=== PATIENT | male | born 1945 | race Hispanic/Latino ===

== ENCOUNTER → 2019-10-16 | Day surgery (SDC) | payer MEDICARE, OTHER ==
[2019-10-11 12:48] LABS: BASOPHILS % 0.3 % (0.0-1.0); EOSINOPHILS # (AUTO) 0.1 (0.0-0.4); EOSINOPHILS % 1.2 % (0.0-6.0); HEMATOCRIT 38.2 % (38.2-49.6); HEMOGLOBIN 12.7 g/dL (14.0-18.0); LYMPHOCYTES # (AUTO) 4.1 (1.0-3.2); LYMPHOCYTES % 40.6 % (18.0-39.1); MEAN CORPUSCULAR HEMOGLOBIN 29.5 pg (28-32); MEAN CORPUSCULAR HGB CONC 33.2 g/dL (31-35); MEAN CORPUSCULAR VOLUME 88.6 fL (81-99); MONOCYTES # (AUTO) 0.9 (0.2-0.8); NEUTROPHILS # (AUTO) 4.8 (2.1-6.9); NEUTROPHILS % 48.4 % (38.7-80.0); PLATELET COUNT 235 x10e3/uL (140-360); RED BLOOD COUNT 4.31 x10e6/uL (4.3-5.7); RED CELL DISTRIBUTION WIDTH 14.5 % (11.7-14.4)
[2019-10-11 13:10] LABS: ALANINE AMINOTRANSFERASE 26 IU/L (0-55); ALBUMIN 3.9 g/dL (3.5-5.0); ALBUMIN/GLOBULIN RATIO 1.1 (0.8-2.0); ALKALINE PHOSPHATASE 86 IU/L (40-150); ANION GAP 15.2 mmol/L (8-16); BLOOD UREA NITROGEN 12 mg/dL (7-26); BUN/CREATININE RATIO 13 (6-25); CARBON DIOXIDE 19 mmol/L (22-29); CHLORIDE 102 mmol/L (98-107); CREATININE, SERUM 0.93 mg/dL (0.72-1.25); EST GLOMERULAR FILTRATION RATE > 60 ML/MIN (60-); GLUCOSE 134 mg/dL (74-118); POTASSIUM 4.2 mmol/L (3.5-5.1); SODIUM 132 mmol/L (136-145)
[2019-10-16] VITALS (11 sets, daily range): BP systolic 100–177; BP diastolic 66–88
[~2019-10-16] MED LIST: ALPRAZOLAM 0.5 MG TAB ONE; ARICEPT5 MG PO; ASPIRIN 325 MG TAB ONE; ATORVASTATIN CA20 MG PO; BIVALRIUDIN 250 MG/VIAL VIAL IV ONE; COREG3.125 MG PO; DIPHENHYDRAMINE HCL 25 MG CAP ONE; ELIQUIS5 MG PO; FENTANYL CITRATE/PF 100MCG/2 ML INJ ONE; FUROSEMIDE40 MG PO; HEPARIN SOD/SOD CHLORIDE 2,000 ML ONE; INDOMETHACIN50 MG PO; IOPAMIDOL 370 MG/ML 200 ML INFUS..BTL INJ ONE; LIDOCAINE HCL 2% LOCAL 20 ML VIAL ONE; LORATADINE10 MG PO; LOSARTAN POTASS25 MG PO; LYRICA50 MG PO; METFORMIN HCL500 MG PO; MIDAZOLAM HCL 2 MG/2 ML VIAL ONE; POTASSIUM CHLO10 ME1 PO; PRASUGREL 10 MG TAB ONE; SODIUM CHLORIDE 0.9% 1000ML 1,000 ML ONE; SODIUM CHLORIDE 0.9% 50ML 50 ML ONE; VERAPAMIL HCL 2.5 MG/ML 2 ML VIAL ONE
--- NOTE | 2019-10-16 14:56 | NUR ---
1456 Received pt to room #9,bedside report received from JOE Ricks. Alert oriented and appropriate, PERRLA, respirations even and unlabored to room air. Pulses x4 extremities equal and strong. Pedal pulses PT/DP X4 Doppler. Cap fill brisk < 3 sec. Rt Tr band approach No gross issues pain pallor pressure dysrhythmia.Decrease air at 7pm Skin warm and dry integrity appears D/I. IV 20g to left wrist Angiomax infusing to complete at 330pm presents healthy w/o s/s of infiltration or complaint. Abdomen soft and supple. pt offered toileting, denies need to urinate or defecate. No personal affects with patient. No Family at bedside Ms Scherer to come at 8pm for dc planning pt home at 9pm.. Pt and family verbalizes understanding of POC. Currently w/o complaint of pain or need. -mariza/joe
--- NOTE | 2019-10-16 15:30 | NUR ---
1530p Angiomax completed. No gross issues pain,pallor ,pressure or dysrhythmia.May dc home at 9pm. Called family and mad arrangements for pickup Ms Scherer will arrive for pickup at 9pm to hear dc instructions. Understand daughter does speak Pashto. mariza/rn
--- NOTE | 2019-10-16 18:00 | NUR ---
1800p RADIAL Compression removal: Initial Cuff volume 12 cc 1800p -2cc Removed No hematoma/bleeding noted with normal neurovascular function. 1815cc -5cc Removed No hematoma/ bleeding noted with normal neurovascular function. 1830cc -5ccRemoved No hematoma/bleeding noted with normal neurovascular function. Air removal completed. Stasis achieved sterile 2x2,Tegaderm, Coban dressing No hematoma, bleeding noted with normal neurovascular function. Wrist splint in place. Pt instructed on POC. Ds/Rn
--- NOTE | 2019-10-16 19:00 | NUR ---
1900p Handoff to Vaishnavi De León Tr band off. No gross issues pain,pallor,pressure or dysrhythmia. Vs stable Family to arrive at 8pm for dc teaching.Downtime 9pm Lad fix x1 stent. Denies CP or SOB Left iv infusing w/o s/s infiltration at 100cchr till dc.
--- NOTE | 2019-10-16 21:06 | Operative Report ---
DATE OF PROCEDURE: SURGEON: Josue Bronson MD INDICATIONS: Coronary artery disease, abnormal stress test with angina. PROCEDURES PERFORMED: 1. Ultrasound-guided access in the right radial artery with sheath placement. 2. Conscious sedation, 65 minutes. 3. Left heart catheterization, selective coronary angiography. 4. Left anterior descending artery, midportion, stent placement. 5. Deployment of right wrist TR band. COMPLICATIONS: None. BLOOD LOSS: Minimal. RECOMMENDATIONS: 1. Aspirin, clopidogrel, and Eliquis for 3 months followed by aspirin and Eliquis thereafter. 2. Staged intervention on the obtuse marginal circumflex arteries in bifurcating fashion. DESCRIPTION OF PROCEDURE: Access was obtained in the right radial artery using ultrasound guidance, a 5-Montenegrin sheath was placed. Coronary angiography demonstrated patent left main, left anterior descending artery, mid 80% stenosis, obtuse marginal branch, ostial 90% stenosis, right coronary artery, mild 20% stenosis. LV end-diastolic pressure was normal. A decision was made to intervene on the left anterior descending artery. The patient received intravenous Angiomax, oral aspirin, and prasugrel for anticoagulation. The left main was cannulated using an EBU 375, 6-Montenegrin guiding catheter. Short BMW wire was advanced for cross prime for advanced for support. Primary stent 2.5 x 16 mm Synergy stent was deployed at 14 atmospheres. Excellent end result, less than 10% residual stenosis, LESVIA-3 flow. No complications. Wire and guide sheath removed. TR band applied. The patient discharged home same day. Josue Bronson MD KSB/MODL /[id number]
== END | disposition home or self-care (01) ==
LOC: CATH LAB 11:10
PROVIDERS: ATTEND Internal Medicine Interventional Cardiology
DX: I25.118 Atherosclerotic heart disease of native coronary artery with other forms of angina pectoris (principal); R94.39 Abnormal result of other cardiovascular function study; I48.3 Typical atrial flutter; I11.0 Hypertensive heart disease with heart failure; I50.23 Acute on chronic systolic (congestive) heart failure; I44.7 Left bundle-branch block, unspecified; E11.9 Type 2 diabetes mellitus without complications; E78.00 Pure hypercholesterolemia, unspecified; Z01.812 Encounter for preprocedural laboratory examination; Z11.59 Encounter for screening for other viral diseases; Z79.84 Long term (current) use of oral hypoglycemic drugs; Z79.02 Long term (current) use of antithrombotics/antiplatelets; Z68.34 Body mass index [BMI] 34.0-34.9, adult
CPT/HCPCS: 93454; C9600; 36415; 76937; 80053; 85025; 87635; 92928; 99152; 99153; C1769; C1887; C1894; J0583; J2001; J2250; J3010; J7030; Q9967

== ENCOUNTER → 2019-11-13 | Day surgery (SDC) | payer MEDICARE, OTHER ==
[2019-11-08 10:05] LABS: BASOPHILS % 0.4 % (0.0-1.0); EOSINOPHILS # (AUTO) 0.1 (0.0-0.4); EOSINOPHILS % 1.2 % (0.0-6.0); HEMATOCRIT 40.5 % (38.2-49.6); HEMOGLOBIN 13.3 g/dL (14.0-18.0); LYMPHOCYTES % 41.5 % (18.0-39.1); MEAN CORPUSCULAR HGB CONC 32.8 g/dL (31-35); MEAN CORPUSCULAR VOLUME 88.4 fL (81-99); MONOCYTES # (AUTO) 0.8 (0.2-0.8); MONOCYTES % 8.3 % (4.4-11.3); NEUTROPHILS # (AUTO) 4.6 (2.1-6.9); NEUTROPHILS % 47.9 % (38.7-80.0); PLATELET COUNT 257 x10e3/uL (140-360); RED BLOOD COUNT 4.58 x10e6/uL (4.3-5.7); RED CELL DISTRIBUTION WIDTH 14.1 % (11.7-14.4)
[2019-11-08 10:21] LABS: CHLORIDE 100 mmol/L (98-107); POTASSIUM 4.3 mmol/L (3.5-5.1); SODIUM 134 mmol/L (136-145)
[2019-11-08 10:22] LABS: ALANINE AMINOTRANSFERASE 33 IU/L (0-55); ALBUMIN 3.9 g/dL (3.5-5.0); ALBUMIN/GLOBULIN RATIO 1.1 (0.8-2.0); ALKALINE PHOSPHATASE 88 IU/L (40-150); ANION GAP 14.3 mmol/L (8-16); BLOOD UREA NITROGEN 11 mg/dL (7-26); BUN/CREATININE RATIO 10 (6-25); CALCIUM 9.1 mg/dL (8.4-10.2); CARBON DIOXIDE 24 mmol/L (22-29); CREATININE, SERUM 1.13 mg/dL (0.72-1.25); EST GLOMERULAR FILTRATION RATE > 60 ML/MIN (60-); GLUCOSE 209 mg/dL (74-118)
[~2019-11-13] VITALS: Ht 167.6 cm; Wt 79.8 kg
[2019-11-13] VITALS (15 sets, daily range): BP systolic 120–136; BP diastolic 68–87
[~2019-11-13] MED LIST changes: -ASPIRIN 325 MG TAB ONE; -BIVALRIUDIN 250 MG/VIAL VIAL IV ONE; +HEPARIN SOD (PORCINE) 1000 UNIT/ML 30ML ONE; +NITROGLYCERIN/D5W 200 MCG/ML 250 ML ONE; -PRASUGREL 10 MG TAB ONE
--- NOTE | 2019-11-13 11:00 | NUR ---
1100 am PREP NOTE PROCEDURAL .................................................................................. pt in #9, prepped for procedure. Identufyx2. Dr Montes [facility] with stents.Alert oriented and appropriate, PERRLA, respirations even and unlabored to room air. Pulses x4 extremities. Rt DP Pedal pulses present.Left PP PT/DP weak with doppler and marked. Cap fill brisk < 3 sec. bilateral feet semi cool and pale. Skin warm and dry integrity appears intact in general. Abdomen soft and supple. pt offered toileting, denies need to urinate or defecate. Personal affects with patient. Family at bedside. Pt verbalizes understanding of POC. Daughter Messi Stein is ride [facility] [phone]. Iv to be started by Millicent DIAZ later. Vaishnavi Crespo to do consent. To be preop later with Xanax and fawnyl. Void qs.Pt states ate breakfast at 5am. Pt has unstable gait and fall risk band on. mariza/rn
--- NOTE | 2019-11-13 11:35 | NUR ---
1135AM iv started Millicent Rn x1 stick NO s/s infiltration,secured and site halthy. Medicated small sip h20 Benadryl 50, Xanax 0.5 po.Bed in low position and call light a bedside with side rails ,bed brakes on , Instruction to call for assistance. Awaitng Md arrival for potential table time 2pm No c/o CP or SOB ds/rn
--- NOTE | 2019-11-13 11:45 | NUR ---
1145 Handoff to Fidel DIAZ aware of status needs consent completed,IV and preop meds. Pt in room call light at bedside, bed in low position with call light at bedside and bed brakes on. be
--- NOTE | 2019-11-13 17:45 | NUR ---
report received from Mallory Kimball RN. Review of orders, vs trend, and right wrist assess. WNL . no distress. FAmily was contacted to be at facility at 8pm for discharge teaching. PT nods and denies need.
--- NOTE | 2019-11-13 18:57 | NUR ---
report off to Zehra Chaudhary. No gross changes or need at this time. TR band to be removed at 1930 and pending discharge after. VS wnl. transfer of care.
--- NOTE | 2019-11-13 19:00 | NUR ---
1900 Received pt to room 09,bedside report received from Sarthak DIAZ. Alert oriented and appropriate, PERRLA, respirations even and unlabored to room air. Pulses x4 extremities Pedal pulses PT/DP X4 and marked. Cap fill brisk < 3 sec. Rt Tr band intact NO gross issues pain,pallor,pressure or dysrhythmia. TR band come down at 1930pm. Skin warm and dry integrity appears . IV 20g left presents healthy w/o s/s of infiltration or complaint. Abdomen soft and supple. pt offered toileting, denies need to urinate or defecate. No personal affects with patient. Family at bedside. Currently w/o complaint of pain or need. ds/breana
--- NOTE | 2019-11-13 19:26 | Operative Report ---
DATE OF PROCEDURE: 11/13/2019 SURGEON: Josue Bronson MD INDICATIONS: Coronary artery disease, angina with staged PCI. PROCEDURES PERFORMED: 1. Ultrasound-guided access in the right radial artery with sheath placement. 2. Conscious sedation, 65 minutes. 3. Left heart catheterization, selective coronary angiography. 4. Stent placement to the obtuse marginal branch of the circumflex artery. 5. Deployment of right wrist TR band. COMPLICATIONS: None. RECOMMENDATIONS: Dual antiplatelet therapy for at least one year. If the patient has persistent angina, consider circumflex and PCI. DESCRIPTION OF PROCEDURE: Access was obtained in the right radial artery. Using ultrasound guidance, a 5-Kinyarwanda sheath was placed. Angiomax, oral prasugrel, and Effient were administered for anticoagulation. The left main was cannulated using an EBU 375, 5-Kinyarwanda guiding catheter, 90% ostial stenosis in the obtuse marginal branch of the circumflex artery. The lesion was crossed using a Runthrough wire. Predilatation with 2 mm balloon following which a single 2.5 x 24 mm Synergy stent was deployed at 14 atmospheres at the ostium, not extending into the circumflex artery, 50% plaque shift was noted into the mid circumflex artery was not felt to be hemodynamically significant. Wire and guide sheath were removed. TR band applied. The patient discharged home the same day. Josue Bronson MD KSB/MODL /[id number]
--- NOTE | 2019-11-13 19:30 | NUR ---
193 RADIAL Compression removal: Initial Cuff volume 12 cc 1930 -2cc Removed No hematoma/bleeding noted with normal neurovascular function. 1944 -5cc Removed No hematoma/ bleeding noted with normal neurovascular function. 1999 -5cc Removed No hematoma/bleeding noted with normal neurovascular function. Air removal completed. Stasis achieved sterile 2x2,Tegaderm, Coban dressing No hematoma, bleeding noted with normal neurovascular function. Wrist splint in place. Pt instructed on POC. Ds/Rn
--- NOTE | 2019-11-13 20:00 | NUR ---
2000p Pt meets DC criteria. Rt TR assessed for s/s of complication and presence of hematoma. Skin warm, dry, no discolor, and pulses present. IV removed from . Distal tip appears intact. VS WNL. Pt denies pain, sob, or need at this time. Family at bedside. Review of discharge paperwork and follow up instructions. verbalized understanding. Pt to wheelchair and transported to front of hospital. Transferred to private vehicle under own strength w/o incident with DC paperwork in hand. -ds/rn
== END | disposition home or self-care (01) ==
LOC: CATH LAB 10:28
PROVIDERS: ATTEND Internal Medicine Interventional Cardiology
DX: I25.118 Atherosclerotic heart disease of native coronary artery with other forms of angina pectoris (principal); I48.92 Unspecified atrial flutter; Z01.812 Encounter for preprocedural laboratory examination; Z11.59 Encounter for screening for other viral diseases; Z79.84 Long term (current) use of oral hypoglycemic drugs
CPT/HCPCS: 76937; 93454; C9600; 36415; 80053; 82948; 85025; 92928; 99152; C1725; C1769; C1874; C1894; J1644; J2001; J2250; J3010; J7030; Q9967; U0002

== ENCOUNTER 2020-04-28 07:28 | Inpatient (IN) | payer MEDICARE ==
[2020-04-23 09:30] LABS: BASOPHILS % 0.4 % (0.0-1.0); EOSINOPHILS # (AUTO) 0.1 (0.0-0.4); EOSINOPHILS % 1.4 % (0.0-6.0); HEMATOCRIT 34.9 % (38.2-49.6); HEMOGLOBIN 11.4 g/dL (14.0-18.0); LYMPHOCYTES # (AUTO) 2.4 (1.0-3.2); LYMPHOCYTES % 32.4 % (18.0-39.1); MEAN CORPUSCULAR HEMOGLOBIN 29.3 pg (28-32); MEAN CORPUSCULAR HGB CONC 32.7 g/dL (31-35); MEAN CORPUSCULAR VOLUME 89.7 fL (81-99); MONOCYTES # (AUTO) 0.7 (0.2-0.8); NEUTROPHILS # (AUTO) 4.1 (2.1-6.9); NEUTROPHILS % 56.4 % (38.7-80.0); PLATELET COUNT 292 x10e3/uL (140-360); RED BLOOD COUNT 3.89 x10e6/uL (4.3-5.7); RED CELL DISTRIBUTION WIDTH 14.4 % (11.7-14.4)
[2020-04-23 11:06] LABS: BLOOD UREA NITROGEN 8 mg/dL (7-26); BUN/CREATININE RATIO 10 (6-25); CARBON DIOXIDE 24 mmol/L (22-29); CHLORIDE 99 mmol/L (98-107); EST GLOMERULAR FILTRATION RATE > 60 ML/MIN (60-); GLUCOSE 125 mg/dL (74-118); SODIUM 131 mmol/L (136-145)
[~2020-04-28] VITALS: Ht 162.6 cm; Wt 74.4 kg
[~2020-04-28 07:28] MED LIST changes: -ALPRAZOLAM 0.5 MG TAB ONE; +ASPIRIN81 MG PO; -DIPHENHYDRAMINE HCL 25 MG CAP ONE; -FENTANYL CITRATE/PF 100MCG/2 ML INJ ONE; -HEPARIN SOD (PORCINE) 1000 UNIT/ML 30ML ONE; -HEPARIN SOD/SOD CHLORIDE 2,000 ML ONE; +INDOMETHACIN20 MG PO; -IOPAMIDOL 370 MG/ML 200 ML INFUS..BTL INJ ONE; +KLOR CON PO; -LIDOCAINE HCL 2% LOCAL 20 ML VIAL ONE; -MIDAZOLAM HCL 2 MG/2 ML VIAL ONE; -NITROGLYCERIN/D5W 200 MCG/ML 250 ML ONE; +PLAVIX75 MG PO; -SODIUM CHLORIDE 0.9% 1000ML 1,000 ML ONE; -SODIUM CHLORIDE 0.9% 50ML 50 ML ONE; -VERAPAMIL HCL 2.5 MG/ML 2 ML VIAL ONE
[2020-04-28] MEDS ORDERED: ROPIVACAINE 246.25 MG, EPINEPHRINE HCL 1:1000 1ML 0.5 MG, CLONIDINE HCL 0.08 MG, KETORO... INJ ONE ×5 (07:30)
[2020-04-28] MEDS ORDERED: DEXAMETHASONE SOD PHOS 10 MG/1 ML VIAL ONE (08:03)
[2020-04-28] MEDS ORDERED: CELECOXIB 200 MG CAP ONE (08:03)
[2020-04-28] MEDS ORDERED: CEFAZOLIN SOD 1 GM/NS 50ML 100 ML IV ONE (08:04)
[2020-04-28] MEDS ORDERED: GABAPENTIN 300 MG CAP ONE (08:04)
[2020-04-28] MEDS ORDERED: VANCOMYCIN HCL 1,000 MG ONE (08:34)
[2020-04-28] MEDS ORDERED: TRANEXAMIC ACID 1,000 MG/10 ML ML ONE (08:34)
[2020-04-28] MEDS ORDERED: SODIUM CHLORIDE 0.9% 500ML 500 ML ONE (08:34)
[2020-04-28] MEDS ORDERED: DOCUSATE SODIUM 100 MG CAP PO PRN (11:45)
[2020-04-28] MEDS ORDERED: DIPHENHYDRAMINE HCL INJ 50 MG/ML VIAL IV PRN (11:45)
[2020-04-28] MEDS ORDERED: ACETAMINOPHEN 650 MG SUPP PR PRN (11:45)
[2020-04-28] MEDS ORDERED: ONDANSETRON HCL INJ 2MG/ML 2ML 2 MG/ML VIAL IV PRN (11:45)
[2020-04-28] MEDS ORDERED: HYDROCODONE/APAP 7.5MG-325MG 1 EA TAB PO PRN (11:45)
[2020-04-28] MEDS ORDERED: ZOLPIDEM TARTRATE 5 MG TAB PO PRN (11:45)
[2020-04-28] MEDS ORDERED: HYDROCODONE/APAP 5MG-325MG TAB PO PRN (11:45)
[2020-04-28] MEDS ORDERED: KETOROLAC TROMETHAMINE 30 MG/ML VIAL IV PRN (11:45)
[2020-04-28 12:23] VITALS: BP 115/65
[2020-04-28] MEDS ORDERED: SEVOFLURANE INHAL SOLN 250 ML PEN BTL ONE (12:53)
[2020-04-28] MEDS ORDERED: PROPOFOL IV EMULSION 10 MG/ML 20 ML VIAL ONE (12:53)
[2020-04-28] MEDS ORDERED: LIDOCAINE HCL 2% LOCAL INJ 5 ML SDV VIAL INJ ONE (12:53)
[2020-04-28] MEDS ORDERED: ONDANSETRON HCL INJ 2MG/ML 2ML 2 MG/ML VIAL ONE (12:53)
[2020-04-28 12:56] VITALS: BP 115/65
[2020-04-28 13:03] VITALS: BP 115/65
[2020-04-28] MEDS: SODIUM CHLORIDE 0.9% 1000ML 1,000 ML IV SCH ×2 (14:00→21:18)
[2020-04-28 15:11] LABS: BASOPHILS % 0.1 % (0.0-1.0); HEMOGLOBIN 9.8 g/dL (14.0-18.0); LYMPHOCYTES # (AUTO) 0.3 (1.0-3.2); LYMPHOCYTES % 2.8 % (18.0-39.1); MEAN CORPUSCULAR HEMOGLOBIN 29.4 pg (28-32); MEAN CORPUSCULAR HGB CONC 32.7 g/dL (31-35); MEAN CORPUSCULAR VOLUME 90.1 fL (81-99); MONOCYTES # (AUTO) 0.2 (0.2-0.8); MONOCYTES % 1.6 % (4.4-11.3); NEUTROPHILS # (AUTO) 10.3 (2.1-6.9); NEUTROPHILS % 95.2 % (38.7-80.0); PLATELET COUNT 271 x10e3/uL (140-360); RED BLOOD COUNT 3.33 x10e6/uL (4.3-5.7); RED CELL DISTRIBUTION WIDTH 14.1 % (11.7-14.4)
[2020-04-28 15:28] LABS: ANION GAP 17.2 mmol/L (8-16); BLOOD UREA NITROGEN 12 mg/dL (7-26); BUN/CREATININE RATIO 12 (6-25); CALCIUM 8.3 mg/dL (8.4-10.2); CARBON DIOXIDE 21 mmol/L (22-29); CHLORIDE 96 mmol/L (98-107); CREATININE, SERUM 0.98 mg/dL (0.72-1.25); EST GLOMERULAR FILTRATION RATE > 60 ML/MIN (60-); GLUCOSE 310 mg/dL (74-118); POTASSIUM 4.2 mmol/L (3.5-5.1); SODIUM 130 mmol/L (136-145)
[2020-04-28 16:00] VITALS: BP 102/54
[2020-04-28 16:54] LABS: BAND NEUTROPHILS % (MANUAL) 1 %; LYMPHOCYTES % (MANUAL) 2 % (19-48); METAMYELOCYTES % (MANUAL) 1 % (0-0); NEUTROPHILS % (MANUAL) 96 % (40-74)
[2020-04-28 16:55] LABS: PLATELET ESTIMATE ADEQUATE; PLATELET MORPHOLOGY COMMENT NORMAL; RBC MORPHOLOGY COMMENT NORMAL
[2020-04-28] MEDS: CEFAZOLIN SOD 1 GM/NS 50ML 50 ML IV SCH (16:59)
[2020-04-28] MEDS: ASPIRIN 325 MG TAB PO SCH (16:59)
[2020-04-28] MEDS: CELECOXIB 200 MG CAP PO SCH (16:59)
[2020-04-28] MEDS ORDERED: DEXTROSE 50% SYRINGE 50 ML IV PRN (17:00)
[2020-04-28] MEDS: INSULIN REGULAR, HUMAN 100 UNIT/1 ML 3ML VIAL SQ SCH ×2 (17:00→23:21)
[2020-04-28 20:00] VITALS: BP 102/64
[2020-04-28 21:00] VITALS: BP 102/64
[2020-04-28] MEDS ORDERED: INDOMETHACIN25 MG PO (21:29)
[2020-04-29] VITALS: BP 105/63
[2020-04-29] MEDS: CEFAZOLIN SOD 1 GM/NS 50ML 50 ML IV SCH ×2 (02:39→09:40)
[2020-04-29 05:14] LABS: HEMATOCRIT 24.9 % (38.2-49.6); HEMOGLOBIN 8.2 g/dL (14.0-18.0)
[2020-04-29] MEDS: INSULIN REGULAR, HUMAN 100 UNIT/1 ML 3ML VIAL SQ SCH ×3 (07:30→16:16)
[2020-04-29 08:41] VITALS: BP 99/63
[2020-04-29] MEDS ORDERED: METFORMIN HCL 500 MG TAB PO SCH (09:00)
[2020-04-29] MEDS ORDERED: FUROSEMIDE 40 MG TAB PO SCH (09:00)
[2020-04-29] MEDS ORDERED: POTASSIUM CHLORIDE 10MEQ EA PO SCH (09:00)
[2020-04-29] MEDS ORDERED: ATORVASTATIN 20 MG TAB PO SCH (09:00)
[2020-04-29] MEDS ORDERED: CLOPIDOGREL BISULFATE 75 MG TAB PO SCH (09:00)
[2020-04-29] MEDS: CELECOXIB 200 MG CAP PO SCH ×2 (09:28→16:15)
[2020-04-29] MEDS: ASPIRIN 325 MG TAB PO SCH ×2 (09:28→16:15)
[2020-04-29 09:30] VITALS: BP 99/63
[2020-04-29] MEDS: SODIUM CHLORIDE 0.9% 1000ML 1,000 ML IV SCH (09:30)
[2020-04-29] MEDS ORDERED: ACETAMINOPHEN 1000 MG/100 ML IV PRN (11:45)
[2020-04-29 14:35] VITALS: BP 98/59
[2020-04-29 17:24] VITALS: BP 122/68
[2020-04-29] MEDS ORDERED: DONEPEZIL HCL 5 MG TAB PO SCH (21:00)
== END 2020-04-29 17:46 | disposition home health service (06) | DRG 467 ==
LOC: OR 07:28 → PACU V 11:37 → MED/SURG 12:29
PROVIDERS: ADMIT Specialist; ATTEND Specialist
PROC: 0SRC0J9 Replacement of Right Knee Joint with Synthetic Substitute, Cemented, Open Approach (ICD-10-PCS; 2020-04-28)
PROC: 0SPC0JZ Removal of Synthetic Substitute from Right Knee Joint, Open Approach (ICD-10-PCS; principal; 2020-04-28 09:30)
DX: S72.451A Displaced supracondylar fracture without intracondylar extension of lower end of right femur, initial encounter for closed fracture (principal); M80.051A Age-related osteoporosis with current pathological fracture, right femur, initial encounter for fracture; M97.11XA Periprosthetic fracture around internal prosthetic right knee joint, initial encounter; Z96.651 Presence of right artificial knee joint; I10 Essential (primary) hypertension; E11.9 Type 2 diabetes mellitus without complications; D64.9 Anemia, unspecified; E78.5 Hyperlipidemia, unspecified; Z83.3 Family history of diabetes mellitus; W19.XXXA Unspecified fall, initial encounter; Z20.828 Contact with and (suspected) exposure to other viral communicable diseases; Z79.84 Long term (current) use of oral hypoglycemic drugs; Z79.82 Long term (current) use of aspirin
CPT/HCPCS: 36415; 71046; 80048; 82948; 85014; 85018; 85025; 86850; 86900; 86920; 97139; C1713; J0171; J0690; J1100; J1817; J1885; J2001; J2405; J2795; J3370; J7030; J7040; U0002